=== PATIENT | male | born 1980 | race Caucasian/White ===

== ENCOUNTER 2024-07-08 16:51 | Emergency (ER) | payer OTHER ==
[~2024-07-08] VITALS: Ht 180.3 cm; Wt 155.0 kg
[2024-07-08 17:03] VITALS: PULSE 89; RESP 18; O2SAT 99
[2024-07-08 17:04] VITALS: BP 164/92; TEMP 37; O2SAT 97
[2024-07-08] MEDS ORDERED: IBUP-2030 MT (18:01)
== END 2024-07-08 18:22 ==
LOC: ER 16:51
DX: M79.10 Myalgia, unspecified site (principal); Z90.89 Acquired absence of other organs; I10 Essential (primary) hypertension; V43.62XA Car passenger injured in collision with other type car in traffic accident, initial encounter; Y93.89 Activity, other specified; Y92.89 Other specified places as the place of occurrence of the external cause; Y99.8 Other external cause status
CPT/HCPCS: 99282